=== PATIENT | female | born 1980 | race Two or more races ===

== ENCOUNTER 2022-03-30 21:32 | Inpatient (IN) | payer MEDICAID ==
[~2022-03-30] VITALS: Ht 160 cm; Wt 72.6 kg
[2022-03-30 22:50] LABS: Basophils # (auto) 0.1 10 ^3/uL (0-0.2); Basophils % (auto) 0.8 % (0.0-2.0); Eosinophils # (auto) 0.1 10 ^3/uL (0-0.8); Eosinophils % (auto) 0.6 % (0.0-7.0); Hematocrit 39.1 % (36.0-46.0); Hemoglobin 13.2 g/dL (12.2-16.2); Lymphocytes # (auto) 2.2 10 ^3/uL (0.4-5.4); Lymphocytes % (auto) 27.1 % (10.0-50.0); Mean Corpuscular Hemoglobin 28.5 pg (28.0-32.0); Mean Corpuscular Hgb Conc. 33.9 g/dL (32.0-36.0); Mean Corpuscular Volume 84.2 fL (80.0-100.0); Monocytes # (auto) 0.5 10 ^3/uL (0-1.3); Monocytes % (auto) 5.9 % (0.0-12.0); Neutrophils # (auto) 5.3 10 ^3/uL (1.6-8.6); Neutrophils % (auto) 65.6 % (37.0-80.0); Red Blood Cells 4.64 10^6/uL (4.0-5.20); Red Cell Distribution Width 14.4 % (11.8-14.3)
[2022-03-30 23:05] LABS: Albumin 3.7 g/dL (3.4-5.0); BUN/Creatinine Ratio 14.4; Calcium 8.7 mg/dL (8.5-10.1); Magnesium 2.2 mg/dL (1.6-2.6); Potassium 3.9 mmol/L (3.5-5.1)
[2022-03-30 23:09] LABS: Bilirubin, Total 0.3 mg/dL (0.2-1.0); Total Protein 7.5 g/dL (6.4-8.2)
[2022-03-31] MEDS ORDERED: HYDROcodone-ACET 5/325MG TAB PO ONE (03:00)
[2022-03-31] MEDS ORDERED: MORPHINE SULFATE INJ 2 MG/ml SYRG IV PRN (05:00)
[2022-03-31] MEDS ORDERED: TEMAZEPAM 15 MG CAP PO PRN (05:00)
[2022-03-31] MEDS ORDERED: ACETAMINOPHEN 325 MG TAB PO PRN (05:00)
[2022-03-31] MEDS ORDERED: NITROGLYCERIN 0.4 MG SL TAB SL PRN (05:00)
[2022-03-31 05:30] LABS: Cholesterol 203 mg/dL (< 200); Triglycerides 284 mg/dL (< 150)
[2022-03-31 05:31] LABS: HDL Cholesterol 47 mg/dL (40-59); LDL Cholesterol 121 mg/dL (< 100)
[2022-03-31] MEDS ORDERED: LISINOPRIL 5 MG TAB PO SCH (10:00)
[2022-03-31] MEDS ORDERED: PANTOPRAZOLE 40 MG TAB PO SCH (10:00)
[2022-03-31] MEDS ORDERED: ASPirin 81 mg TAB PO SCH (10:00)
[2022-03-31] MEDS ORDERED: ATORVASTATIN 20 MG TAB PO ONE (12:00)
[2022-03-31] MEDS ORDERED: IBUPROFEN 400 MG TAB PO ONE (13:00)
[2022-03-31] MEDS ORDERED: ATOR20TA PO (14:25)
[2022-03-31 16:29] VITALS: BP 110/73
[2022-03-31] MEDS ORDERED: ATORVASTATIN 20 MG TAB PO SCH (22:00)
== END 2022-03-31 16:40 | disposition home or self-care (01) | DRG 203 ==
LOC: ER 21:32 → TELE 03-31 04:55
PROVIDERS: ADMIT Nurse Practitioner; ATTEND Internal Medicine
DX: M94.0 Chondrocostal junction syndrome [Tietze] (principal); E78.5 Hyperlipidemia, unspecified; I10 Essential (primary) hypertension; F41.9 Anxiety disorder, unspecified; Z20.822 Contact with and (suspected) exposure to COVID-19
CPT/HCPCS: 36415; 71045; 80053; 80061; 81025; 83036; 83735; 83880; 84443; 84484; 84702; 85025; 85379; 93005; 93306; 96374; G0378